=== PATIENT | male | born 1980 | race Caucasian/White ===

== ENCOUNTER 2023-02-05 14:57 | Emergency (ER) | payer OTHER, SELFPAY ==
--- NOTE | ~2023-02-05 | XR_ITS ---
EXAMINATION: XR finger 1st LT min 2V DATE: 02/05/2023 15:25 INDICATION: Left thumb injury. TECHNIQUE: 4 views of left thumb were obtained. COMPARISON: None. FINDINGS: Bone alignment is normal. No fracture. There is mild osteoarthritis of first carpometacarpa l joint. IMPRESSION: 1. Mild osteoarthritis of first carpometacarpal joint. Reviewed, dictated and finalized at location E. MAN
[2023-02-05 15:10] VITALS: BP 144/94; PULSE 90; RESP 18; TEMP 36.2; O2SAT 100
--- NOTE | 2023-02-05 15:23 | ED.UPPEXIN ---
HPI - Extremity Injury (Upper) General Chief Complaint: Extremity Injury, Upper Stated Complaint: Lt Thumb Injury Time Seen by Provider: 02/05/23 15:15 Source: patient and RN notes reviewed Mode of arrival: ambulatory Limitations: no limitations History of Present Illness HPI narrative: Patient presents today complaining of a left thumb injury. Around noon today he was struck in the thumb by a large metal pipe that fell on to him at work. Denies numbness or tingling. Currently rates his pain 5/10. He is up-to-date on his tetanus vaccine. Reports decreased range of motion due to swelling. Related Data Home Medications Medication Instructions Recorded Confirmed pantoprazole 20 mg tablet,delayed 20 mg PO QAM 02/05/23 02/05/23 release Allergies Allergy/AdvReac Type Severity Reaction Status Date / Time No Known Allergies Allergy Verified 02/05/23 15:14 Review of Systems Review of Systems: CONSTITUTIONAL: Denies body aches, fever, chills, or sweats. EYES: Denies visual changes, redness, or discharge. ENT: Denies rhinorrhea, congestion, sore throat, or otalgia. CARDIOVASCULAR: Denies chest pain, palpitations, or edema. RESPIRATORY: Denies cough or dyspnea. GASTROINTESTINAL: Denies abdominal pain, nausea, vomiting, or diarrhea. GENITOURINARY: Denies dysuria or hematuria. SKIN: Denies rash, itching, or wounds. MUSCULOSKELETAL: + left thumb injury NEUROLOGIC: Denies headache, numbness, tingling, or weakness. PSYCH: Denies depression or anxiety. PMFSH Comments At time of signature, I have reviewed and agree with nursing past medical, surgical, social and family history unless otherwise noted. Please see nursing chart for further information. There is no relevant family history pertinent to the presenting complaint Exam Narrative: GENERAL: Well-appearing, well-nourished, and in no acute distress. HEAD: Normocephalic, atraumatic. EYES: EOMI. No redness or drainage. Conjunctivae normal. ENT: Mucous membranes pink and moist. NECK: Normal AROM. CHEST: No respiratory distress. EXTREMITIES: Left thumb: 1 x 1 cm very superficial flap laceration to the MCP. Mild to moderate swelling to the proximal phalanx with tenderness. Small area of ecchymosis to the volar aspect of the MCP. Distal sensation intact. Capillary refill normal. Decreased range of motion due to swelling. SKIN: Warm, dry, no rash. Capillary refill normal. Normal skin turgor. NEURO: No focal deficits. Alert and oriented x3. Gait steady. PSYCH: Normal affect. No signs of depression or anxiety. Course Course Level of Care: Express Care Visit Vital Signs Vital signs: Vital Signs Temperature 97.1 F L 02/05/23 15:10 Pulse Rate 90 02/05/23 15:10 Respiratory Rate 18 02/05/23 15:10 Blood Pressure 144/94 H 02/05/23 15:10 Pulse Oximetry 100 02/05/23 15:10 Oxygen Delivery Room Air 02/05/23 15:10 Temperature 97.1 F L 02/05/23 15:10 Pulse Rate 90 02/05/23 15:10 Respiratory Rate 18 02/05/23 15:10 Blood Pressure 144/94 H 02/05/23 15:10 Pulse Oximetry 100 02/05/23 15:10 Oxygen Delivery Room Air 02/05/23 15:10 Reviewed MDM - Extremity Injury (Upper) MDM Narrative Medical decision making narrative: Xray negative. Declines glue for the flap of skin. Declines finger splint. Wound cleansed. Care instructions given. Anticipatory guidance given. Differential Diagnosis Differential diagnosis: Likely other (Contusion, fracture, laceration) Imaging Data Radiologist's impression: ITS Impressions Finger X-Ray 02/05/23 15:29 IMPRESSION: 1. Mild osteoarthritis of first carpometacarpal joint. Critical Care Time Critical Care Time Critical Care Time: No Discharge Plan Discharge Clinical Impression: Contusion of left thumb Qualifiers: Encounter type: initial encounter Damage to nail status: without damage Qualified Code(s): S60.012A - Contusion of left thumb without damag
== END 2023-02-05 15:50 | disposition home or self-care (01) ==
PROVIDERS: Emergency Provider Nurse Practitioner
DX: S60.012A Contusion of left thumb without damage to nail, initial encounter (principal); W20.8XXA Other cause of strike by thrown, projected or falling object, initial encounter; Y99.0 Civilian activity done for income or pay
CPT/HCPCS: 73140; 99213; G0463

== ENCOUNTER 2024-10-30 11:28 | Emergency (ER) | payer OTHER, SELFPAY ==
--- NOTE | ~2024-10-30 | XR_ITS ---
EXAMINATION: XR chest 2V DATE: 10/30/2024 11:54 INDICATION: Left-sided chest pain TECHNIQUE: frontal and lateral views of the chest were obtained. COMPARISON: None FINDINGS: The lungs are clear with no focal airspace opacities, pulmonary edema, pleural effusion or pneumothorax. The cardiomediastinal silhouette is normal. Mild lower thoracic spondylosis with likely physiologic mild anterior wedging at T12. IMPRESSION: 1. No acute cardiopulmonary disease. Reviewed, dictated and finalized at location A.
--- NOTE | 2024-10-30 11:29 | ED_ITS ---
HPI - Chest Pain General Chief Complaint: Chest Pain Stated Complaint: CHEST PAIN Time Seen by Provider: 10/30/24 11:28 Source: patient Mode of arrival: ambulatory Limitations: no limitations History of Present Illness HPI narrative: patient is a 44-year-old male with some occasional left-sided chest pain that happens in 2 different spots 1 more medial and 1 more lateral of the left chest. At this time there is no chest pain but came to the ER as there was some earlier today. No shortness of breath. No early CAD in family history. MD complaint: chest pain Pertinent past history: other ( Negative) Onset (ago): day(s) (2) Timing of current episode: episodic, daily, stable and now resolved Prior episodes: No Onset: during rest Pain location: left chest Pain radiation: back Severity: mild Pain scale (0-10): 2 Quality: sharp Relieving factors: nothing Exacerbating factors: palpation, movement and stress Context: other ( patient having chest pain on left side of the chest on and off over the past couple of days and his brought him in for evaluation) Associated symptoms: other ( none) Treatment prior to arrival: none Risk Factors Coronary artery disease risk factors: none Thoracic aortic dissection risk factors: none Related Data Home Medications ?Medication ?Instructions ?Recorded ?Confirmed ?Last Taken ?Type pantoprazole 20 mg tablet,delayed 20 mg PO QAM 3 02/05/23 Unknown History release Allergies Allergy/AdvReac Type Severity Reaction Status Date / Time No Known Allergies Allergy Verified 02/05/23 15:14 Review of Systems 2 Review of Systems: All systems reviewed & are unremarkable except as noted in HPI and below Constitutional: Constitutional: Reports no additional constitutional complaints Eyes: Eyes: Reports no additional eye complaints ENT: Reports system reviewed and no additional complaints, except as documented Cardiovascular: Cardiovascular: Reports no additional cardiovascular complaints Respiratory: Respiratory: Reports no additional respiratory complaints Gastrointestinal: Gastrointestinal: Reports no additional gastrointestinal complaints Genitourinary: Genitourinary: Reports no additional male genitourinary complaints Musculoskeletal: Musculoskeletal: Reports no additional musculoskeletal complaints Integumentary/Breasts: Skin/Breast: Reports system reviewed and no additional complaints, except as docu Neurologic: Reports system reviewed and no additional complaints, except as documented Psychiatric: Psychiatric: Reports no additional psychiatric complaints Endocrine: Endocrine: Reports no additional endocrine complaints Hematologic/Lymphatic: Hematologic/Lymphatic: Reports no additional hematologic/lymphatic complaints Allergic/Immunologic: Allergic/Immunologic: Reports no additional allergic/immunologic complaints Exam 2 Const: General: healthy appearing Nutritional Appearance: well nourished Orientation/consciousness: patient oriented x3 HENMT: Head: normal to inspection Ears: external ears normal F emil/Nose/Sinus: Normal external nose present Eyes: Conjunctivae: conjunctivae normal Pupils: Equal, round and reactive pupils present EOM: EOMs intact bilaterally Neck: Neck: normal visual inspection Chest: Chest palpation & inspection: normal inspection of the chest Resp: Effort & Inspection: normal respiratory effort and not labored A uscultation: clear to auscultation bilaterally and no crackles Cardio: Rate: regular rate Rhythm: regular rhythm Heart sounds: no murmurs GI: Inspection: non-distended GI Palp: Yes Soft to palpation and No Tenderness to palpation present (GI) Auscultation: normal bowel sounds : General: Yes bladder normal to palpation Back/Spine/Pelvis: Back: no CVA tenderness Skin: General skin exam: normal color Rashes: no rashes Wounds: no wounds Neuro: General: patient oriented x3, moves all extremities and no meningeal signs Extrem: General: normal to inspection Psych: Mental Status: mental status grossly normal Affect: normal affect Attitude: cooperative Course Vital Signs Vital signs: Vital Signs Temperature 36.9 C 10/30/24 11:31 Pulse Rate 102 H 10/30/24 11:31 Respiratory Rate 20 10/30/24 11:31 Blood Pressure 150/97 H 10/30/24 11:31 Pulse Oximetry 98 10/30/24 11:31 Oxygen Delivery Room Air 10/30/24 11:31 Temperature 36.9 C 10/30/24 11:31 Pulse Rate 102 H 10/30/24 11:31 Respiratory Rate 20 10/30/24 11:31 Blood Pressure 150/97 H 10/30/24 11:31 Pulse Oximetry 98 10/30/24 11:31 Oxygen Delivery Room Air 10/30/24 11:31 MDM - Chest Pain MDM Narrative Medical decision making narrative: patient is a 44-year-old male with some occasional chest pain and here for evaluation. We will do a cardiac workup at this time. Everything was negative and workup and we will discharge home. He can have further workup done as an outpatient with a receiving associate store or primary doctor. Lab Data Attestation: I reviewed the patient's lab results. 10/30/24 11:44 10/30/24 11:44 Labs: Lab Results 10/30/24 Range/Units 11:44 WBC 6.0 (4.8-10.8) K/mm3 RBC 4.82 (4.70-6.10) M/mm3 Hgb 14.5 (14.0-18.0) g/dL Hct 42.7 (40.0-54.0) % MCV 88.6 (78.0-102.0) fL MCH 30.1 (27.0-31.0) pg MCHC 34.0 (32-36) g/dL RDW 12.3 (11.6-14.4) % Plt Count 324 (150-420) K/mm3 MPV 9.1 (8.7-11.0) fl Immature Gran % (Auto) 0.5 H (0.0-0.0) % Neut % (Auto) 71.6 H (50.0-70.0) % Lymph % (Auto) 21.6 (18.0-42.0) % Davis % (Auto) 4.8 (2.0-11.0) % Eos % (Auto) 1.2 (1.0-6.0) % Baso % (Auto) 0.3 (0.0-1.0) % Lymph # (Auto) 1.30 (1.10-4.50) K/mm3 Davis # (Auto) 0.29 (0.10-0.90) K/mm3 Eos # (Auto) 0.07 (0.02-0.50) K/mm3 Baso # (Auto) 0.02 (0.00-0.10) K/mm3 Abs Immat Gran (auto) 0.03 H (0.00-0.00) K/mm3 Absolute Neuts (auto) 4.30 (1.70-7.20) K/mm3 Absolute Nucleated RBC 0.00 (0.00-0.00) K/mm3 Nucleated RBC % 0.0 (0-0.0) % PT 10.6 (9.50-12.1) Seconds INR 1.0 APTT 27.5 (23.9-30.70) Sec D-Dimer 0.28 (0.19-0.50) mg/L Sodium 142 (137-145) mmol/L Potassium 4.8 (3.4-5.0) mmol/L Chloride 103 (98-107) mmol/L Carbon Dioxide 31 H (22-30) mmol/L Anion Gap 8 (4-12) mmol/L BUN 9 (9-20) mg/dL Creatinine 0.82 (0.7-1.3) mg/dL Estim Creat Clear Calc 108 ml/min Estimated GFR > 60 (59 - ) Glucose 113 H (65-110) mg/dL Calculated Osmolality 293 (285-295) mOsm/kg Calcium 9.7 (8.4-10.2) mg/dL Total Bilirubin 0.9 (0.2-1.3) mg/dL AST 31 (17-59) U/L ALT 23 (6-50) U/L Alkaline Phosphatase 65 (38-126) U/L Troponin I < 0.012 (0.000-0.034) ng/mL NT-Pro-B Natriuret Pep 37 (19.9-100) pg/mL Total Protein 7.0 (6.3-8.2) g/dL Albumin 4.6 (3.5-5.1) g/dL Lipase 256 (23-300) U/L Imaging Data Attestation: I personally reviewed and interpreted this imaging study as follows: Radiologist's impression: Chest x-ray is negative for acute process ECG Data EKG #1: Attestation: I personally reviewed and interpreted this ECG as follows: ECG completion date: 10/30/24 ECG completion time: 12:43 EKG Interpretation: normal rate, sinus rhythm, no ectopy, no ST changes, normal QRS, normal QT, NL axis and no acute changes Discharge Plan Discharge Clinical Impression: Atypical chest pain Patient Disposition: Home Condition: Stable Instructions: Chest Pain (ED) Additional Instructions: Further cardiac testing can be done with your primary doctor in follow-up. Follow up with the primary doctor in the next 1-2 weeks. Patient Language: Chinese Prescriptions: No Action pantoprazole 20 mg Tablet,Delayed Release (Dr/Ec) 20 mg PO QAM Follow-up/Referrals: UNKNOWN,DOCTOR [Non-Staff] Time of Disposition: 12:38
--- NOTE | 2024-10-30 11:29 | ECG_ITS ---
Test Date: 2024-10-30 11:38:05 Measurements Intervals [place] Rate: 89 P: 52 MN: 165 QRS: 5 QRSD: 95 T: 31 QT: 366 QTc: 447 Interpretive Statements SINUS RHYTHM BASELINE ARTIFACT- II, III, AVR, AVL, V1-V6 NORMAL ECG No previous ECG available for comparison Electronically Signed On 10-30-2024 16:08:03 CDT by Ladarius Marie D.O.
[2024-10-30 11:31] VITALS: BP 150/97; PULSE 102; RESP 20; TEMP 36.9; O2SAT 98
[2024-10-30 11:48] LABS: Hematocrit 42.7 % (40.0-54.0); Hemoglobin 14.5 g/dL (14.0-18.0); Immature Granulocyte Percent A 0.5 % (0.0-0.0); Lymphocytes Absolute Auto 1.30 K/mm3 (1.10-4.50); Mean Corpuscular HGB Conc 34.0 g/dL (32-36); Mean Corpuscular Hemoglobin 30.1 pg (27.0-31.0); Mean Corpuscular Volume 88.6 fL (78.0-102.0); Nucleated Red Blood Cells Absolute Auto 0.00 K/mm3 (0.00-0.00); Nucleated Red Blood Cells Perc 0.0 % (0-0.0); Platelet Count Result 324 K/mm3 (150-420); Red Blood Count 4.82 M/mm3 (4.70-6.10); White Blood Count 6.0 K/mm3 (4.8-10.8)
[2024-10-30 12:00] LABS: Alanine Aminotransferase 23 U/L (6-50); Albumin Level 4.6 g/dL (3.5-5.1); Alkaline Phosphatase 65 U/L (38-126); Anion Gap 8 mmol/L (4-12); Aspartate Amino Transferase 31 U/L (17-59); Bilirubin,Total 0.9 mg/dL (0.2-1.3); Blood Urea Nitrogen 9 mg/dL (9-20); Calcium 9.7 mg/dL (8.4-10.2); Carbon Dioxide 31 mmol/L (22-30); Chloride 103 mmol/L (98-107); Estimated CRCL calculation 108 ml/min; Estimated Glomerular Filt Rate > 60; Glucose 113 mg/dL (65-110); Lipase 256 U/L (23-300); Osmolality Calculated 293 mOsm/kg (285-295); Potassium 4.8 mmol/L (3.4-5.0); Sodium 142 mmol/L (137-145); Total Protein 7.0 g/dL (6.3-8.2)
[2024-10-30 12:02] LABS: INR 1.0; Partial Thromboplastin Time 27.5 Sec (23.9-30.70); Prothrombin Time 10.6 Seconds (9.50-12.1)
[2024-10-30 12:12] LABS: NT Pro B Type Natriuretic Pept 37 pg/mL (19.9-100); Troponin I < 0.012 ng/mL (0.000-0.034)
[2024-10-30 12:43] VITALS: BP 132/93; PULSE 68; RESP 16; TEMP 36.7; O2SAT 100
== END 2024-10-30 12:47 | disposition home or self-care (01) ==
PROVIDERS: Emergency Provider Emergency Medicine
DX: R07.89 Other chest pain (principal)
CPT/HCPCS: 36415; 71046; 80053; 83690; 83880; 84484; 85025; 85380; 85610; 85730; 93005; 99284